=== PATIENT | female | born 1950 | race Two or more races ===

== ENCOUNTER 2018-05-03 12:21 | Day surgery (SDC) | payer BC ==
[~2018-05-03] VITALS: Ht 165.1 cm; Wt 60.9 kg
[2018-05-03 14:00] VITALS: Ht 165.1 cm; Wt 60.9 kg
[2018-05-03] MEDS ORDERED: PANTOPRAZOLE (14:19)
[2018-05-03] MEDS ORDERED: CARVEDILOL PO (14:22)
[2018-05-03] MEDS ORDERED: OMEPRAZOLE PO (14:22)
[2018-05-03] MEDS ORDERED: PANTOPRAZOLE PO (14:22)
[2018-05-03] MEDS ORDERED: ONDANSETRON 4 MG INJ IV PRN (14:30)
--- NOTE | 2018-05-03 14:30 | PREAC ---
Date/Time of Note Date/Time of Note DATE: 05/03/18 TIME: 14:28 Anesthesia Eval and Record Evaluation Time Pre-Procedure Interview DATE: 05/03/18 TIME: 14:28 Age 67 Sex female NPO: 8 hrs Preoperative diagnosis dysphagia Planned procedure EGD Past Medical History Past Medical History: Includes Cardio: HTN GI: GERD Surgery & Anesthesia Issues No known issue Meds Anticoagulation: No Beta Zechariah within 24 hr: No Reason Beta Zechariah not given: Pt. not on B-Zechariah Reported Medications [Carvedilol] No Conflict Check, PO DAILY 05/03/18 [Omeprazole] No Conflict Check, PO DAILY 05/03/18 [Pantoprazole] No Conflict Check, PO DAILY 05/03/18 Discontinued Reported Medications [Pantoprazole] No Conflict Check 05/03/18 Meds reviewed: Yes Allergies Coded Allergies: No Known Allergy (Unverified , 05/03/18) Allergies Reviewed: Yes Labs/Studies Labs Reviewed: Reviewed by anesthesiologist test: N/A Studies: ECG (N/a), CXR (N/a) Pre-procedure Exam Airway: Adequate mouth opening Mallampati: Mallampati I Teeth: Normal Lung: Normal Heart: Normal ASA Physical Status ASA physical status: 2 Emergency: None Planned Anesthetic General/MAC: MAC Planned Pain Management Parenteral pain med Pre-operative Attestations Prior to commencing anesthesia and surgery, the patient was re-evaluated, there was verification of: *The patient's identity *The results of appropriate recent lab work and preoperative vital signs *The above evaluation not changing prior to induction *Anesthetic plan, risk benefits, alternative and complications discussed with patient/family; questions answered; patient/family understands, accepts and wishes to proceed. MEREDITH CORTES MD May 03, 2018 14:30
[2018-05-03 14:31] VITALS: BP 143/74; PULSE 71; RESP 20
[2018-05-03] MEDS ORDERED: PROPOFOL 20 ML ONE (14:43)
--- NOTE | 2018-05-03 14:44 | HPN ---
Date/Time of Note Date/Time of Note DATE: 05/03/18 TIME: 14:43 Interval H&P Admission Note Pt. seen H&P reviewed: No system changes NOHEMY RAGLAND May 03, 2018 14:44
--- NOTE | 2018-05-03 15:18 | PAC ---
Date/Time of Note Date/Time of Note DATE: 05/03/18 TIME: 15:18 Post-Anesthesia Notes Post-Anesthesia Note Last documented vital signs Vital Signs Date Temp Pulse Resp B/P (MAP) Pulse Ox O2 O2 Flow FiO2 Time Delivery Rate 05/03/18 98.3 71 20 143/74 98 Room Air 14:31 (97) Activity: WNL Respiratory function: WNL Cardiovascular function: WNL Mental status: Baseline Pain reasonably controlled: Yes Hydration appropriate: Yes Nausea/Vomiting absent: No MEREDITH CORTES MD May 03, 2018 15:18
[2018-05-03 15:34] VITALS: BP 136/86; PULSE 77; RESP 20
== END 2018-05-03 16:36 | disposition home or self-care (01) ==
LOC: GIL 12:21
PROVIDERS: ATTEND Internal Medicine Gastroenterology
DX: K29.50 Unspecified chronic gastritis without bleeding (principal); I10 Essential (primary) hypertension
CPT/HCPCS: 43239; Z7610; 88305; 88312